=== PATIENT | female | born 1985 | race Hispanic/Latino ===

== ENCOUNTER 2021-01-29 15:16 | Emergency (ER) | payer SELFPAY ==
[~2021-01-29] VITALS: Ht 149.9 cm; Wt 52.2 kg
== END 2021-01-29 15:50 | disposition home or self-care (01) ==
LOC: ER 15:30
DX: R20.0 Anesthesia of skin (principal); F41.9 Anxiety disorder, unspecified
CPT/HCPCS: 36415; 82948; 93005; 99283